=== PATIENT | female | born 2000 | race Caucasian/White ===

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

== ENCOUNTER 2022-07-12 09:25 | Emergency (ER) | payer OTHER, SELFPAY ==
[2022-07-12 09:44] VITALS: PULSE 110; RESP 18; TEMP 36.8; O2SAT 100
--- NOTE | 2022-07-12 10:17 | ED.GENADULT ---
HPI - General Adult General Chief complaint: Upper Respiratory Infection Stated complaint: sorethroat Time Seen by Provider: 07/12/22 10:17 Source: patient Mode of arrival: ambulatory Limitations: no limitations History of Present Illness HPI narrative: 21-year-old female patient presents to the [facility] with complaints of a sore throat for past 4 days. Patient states she did have fever, body aches and chills that broke last night. Patient denies any coughing, chest pain or shortness of breath. Denies any nausea, vomiting or diarrhea. Patient states she has also broken out in a rash to bilateral upper extremities chest and back but denies any itching to the rash. Related Data Home Medications Medication Instructions Recorded Confirmed cetirizine 5 mg tablet 5 mg PO DAILY 07/12/22 07/12/22 norethindrone acetate 1.5 1 tablet PO DAILY 07/12/22 07/12/22 mg-ethinyl estradiol 30 mcg tablet (June) Allergies Allergy/AdvReac Type Severity Reaction Status Date / Time azithromycin Allergy Rash Verified 07/12/22 10:21 Review of Systems Review of Systems: CONSTITUTIONAL: positive fever, chills, or sweats. EYES: Denies visual changes, redness, or discharge. ENT: Denies rhinorrhea, congestion, positive sore throat, denies otalgia. CARDIOVASCULAR: Denies chest pain, palpitations, or edema. RESPIRATORY: Denies cough or dyspnea. GASTROINTESTINAL: Denies abdominal pain, nausea, vomiting, or diarrhea. GENITOURINARY: Denies dysuria or hematuria. SKIN: Positive rash denies itching. MUSCULOSKELETAL: Denies back pain, joint pain, or myalgia. NEUROLOGIC: Denies headache, numbness, or weakness. PSYCHIATRIC: Denies anxiety or depression. [facility] Past Medical History Medical History (Updated 07/12/22 @ 10:23 by KEYON Holley) No significant past medical history Exam Narrative: GENERAL: Well-appearing, well-nourished, and in no acute distress. HEAD: Normocephalic, atraumatic. EYES: PERRLA and EOMI. ENT: Nares clear, no rhinorrhea or epistaxis. Mucous membranes moist. posterior pharynx with erythema and 2+ tonsil enlargement. No obvious and excudates is noted. NECK: Supple. cervical lymphadenopathy CHEST: Clear to auscultation. No respiratory distress. HEART: Regular rate and rhythm. No murmur heard. Normal peripheral pulses. ABDOMEN: Soft, nontender, nondistended, normal active bowel sounds. EXTREMITIES: Normal range of motion. No edema. SKIN: Warm, dry, round and oval erythemic patches noted to the bilateral upper extremities and trunk. No wounds or drainage noted. NEURO: No focal deficits. Alert and oriented x3. Course Course Level of Care: Express Care Visit Vital Signs Vital signs: Vital Signs Temperature 36.8 C 07/12/22 09:44 Pulse Rate 110 H 07/12/22 09:44 Respiratory Rate 18 07/12/22 09:44 Pulse Oximetry 100 07/12/22 09:44 Oxygen Delivery Room Air 07/12/22 09:44 Temperature 36.8 C 07/12/22 09:44 Pulse Rate 110 H 07/12/22 09:44 Respiratory Rate 18 07/12/22 09:44 Pulse Oximetry 100 07/12/22 09:44 Oxygen Delivery Room Air 07/12/22 09:44 vital signs reviewed Medical Decision Making MDM Narrative Medical decision making narrative: Notify patient she has positive today for strep throat. 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 Differential Diagnosis Differential Diagnosis: Differential diagnosis: Viral pharyngitis, pharyngitis, group A strep, infectious mononucleosis, gonococcal pharyngitis, exudative pharyngitis, oral candidiasis. Chronic allergies, postnasal drip, GERD, abscess formation, but glottitis, retropharyngeal abscess formation, or airway obstruction. Vital Signs Vital Signs: Vital Signs Temperature 36.8 C 07/12/22 09:44 Pulse Rate 110 H 07/12/22 09:44 Respiratory Rate 18 07/12/22 09:44 Pulse Oximetry 100 07/12/22 09:44 Oxygen Delivery
== END 2022-07-12 10:26 | disposition home or self-care (01) ==
PROVIDERS: Emergency Provider Nurse Practitioner Family
DX: J02.0 Streptococcal pharyngitis (principal)
CPT/HCPCS: 87880; 99213; G0463